=== PATIENT | male | born 1980 | race Caucasian/White ===

== ENCOUNTER 2024-07-23 00:03 | Emergency (ER) | payer SELFPAY ==
[~2024-07-23] VITALS: Ht 180.3 cm; Wt 100.0 kg
[2024-07-23 00:11] VITALS: TEMP 36.8; O2SAT 99
[2024-07-23] MEDS: KETOROLAC 30MG/ML VIAL IM ONE (00:52)
[2024-07-23] MEDS: CYCLOBENZAPRINE 10MG TABLET PO ONE (00:53)
[2024-07-23] MEDS ORDERED: IBUP-2029 MT (02:03)
[2024-07-23 02:15] VITALS: BP 139/89; PULSE 78; RESP 18; O2SAT 95
== END 2024-07-23 02:15 | disposition home or self-care (01) ==
LOC: ER 00:03
DX: S40.011A Contusion of right shoulder, initial encounter (principal); S50.02XA Contusion of left elbow, initial encounter; W01.0XXA Fall on same level from slipping, tripping and stumbling without subsequent striking against object, initial encounter; Y93.89 Activity, other specified; Y92.89 Other specified places as the place of occurrence of the external cause; Y99.8 Other external cause status
CPT/HCPCS: 99284; 73030; 73080; 96372; J1885